=== PATIENT | female | born 1965 | race American Indian/Alaskan Native ===

== ENCOUNTER 2016-08-09 09:59 | Outpatient (CLI) | payer OTHER ==
--- NOTE | 2016-08-09 11:23 | Ultrasound Report ---
Sonogram popliteal fossa: History: Pabon's cyst. Findings: No cystic or solid masses identified. Grossly vascular structures appears unremarkable. Impression: No cystic or solid mass.
== END 2016-08-09 10:00 | disposition home or self-care (01) ==
LOC: SPVWC 09:59
PROVIDERS: ATTEND Hospitalist
DX: M71.21 Synovial cyst of popliteal space [Baker], right knee (principal)

== ENCOUNTER 2018-05-22 08:48 | Day surgery (SDC) | payer OTHER ==
[~2018-05-22 08:48] MED LIST: NACL 0.9% 1000 ML 1,000 ML IV SCH
[2018-05-22] MEDS ORDERED: VERSED ONE (10:38)
[2018-05-22] MEDS ORDERED: DIPRIVAN 10 MG/ML IV ONE (10:38)
--- NOTE | 2018-05-22 10:44 | Anesthesia Day of Surgery ---
Anesthesia Day of Surgery - Day of Surgery Patient Examined: Yes Patient H&P Reviewed: Yes Patient is NPO: Yes Beta Blockers: No
--- NOTE | 2018-05-22 10:44 | Anesthesia Consultation ---
Anesthesia Consult and Med Hx Date of service: 05/22/18 - Airway Anesthetic Teeth Evaluation: Good ROM Head & Neck: Adequate Mental/Hyoid Distance: Adequate Mallampati Class: Class II Intubation Access Assessment: Probably Good - Pulmonary Exam CTA: No - Cardiac Exam Cardiac Exam: RRR - Pre-Operative Health Status ASA Pre-Surgery Classification: ASA3 Proposed Anesthetic Plan: MAC - Cardiovascular System Hx Hypertension: Yes - Endocrine Hx Liver Disease: Yes (CYST ON LIVER)
--- NOTE | 2018-05-22 11:14 | Procedure Note ---
Date of procedure: 05/22/18 Pre-op diagnosis: GERD/ Colon Polyp Screening Post-op diagnosis: other (Mild to Moderate Distal Erosive Esophagitis/ Gastritis/ No Peptic, Ulcer disease noted/ Normal colon Mucosa/ Minor, Internal Hemorrhoid) Procedure: EGD with Biopsy/ colonoscopy Anesthesia: MAC Surgeon: BERTO DIANA Estimated blood loss: minimal Pathology: list Specimen disposition: to lab Condition: stable Disposition: same day (Avoid aspirin and NSAID for 5 days. Treat with PPI and follow up in 1 to 2 weeks ([phone]).)
--- NOTE | 2018-05-22 11:33 | Operative Report ---
PROCEDURE: Esophagogastroduodenoscopy with biopsy INDICATIONS FOR PROCEDURE: This is a 53-year-old -[place] female who has a prior history of Martha fundoplication and gastroesophageal reflux disease symptoms. EGD was done to assess for the severity of the esophagitis. DESCRIPTION OF PROCEDURE: Procedure was done after getting informed consent with MAC anesthesia. Instrument was passed through the pharynx into the esophagus, which showed mild to moderate distal erosive esophagitis. Biopsy was done from the distal esophagus. The Martha fundoplication appears to have loosened a bit. The stomach showed gastritis. Biopsy was done from the gastric antrum, gastric body and angular incisura. There was minimal bleeding from the biopsy sites. Pylorus was patent. Duodenum in the first and second portion appeared normal. ASSESSMENT: Gastroesophageal reflux disease symptoms, history of Martha fundoplication that has become loose and [id number] distal erosive esophagitis, gastritis. No peptic ulcer disease noted. There was minimal bleeding from the biopsy sites. No complications associated with the procedure. PLAN: Plan is to treat the patient with PPI and to do a colonoscopy for further assessment. RNSissy was in the room throughout the entirety of the procedure. The patient will be asked to follow up in the office in 1-2 weeks' time, treated with PPI, and asked to avoid aspirin and aspirin-related products for the next few days. JOB# [id number] SIOMARA/NICHOLE
[2018-05-22 11:51] VITALS: BP 120/81
--- NOTE | 2018-05-22 13:11 | Operative Report ---
PROCEDURE: Colonoscopy. INDICATIONS: This is a 53-year-old -[place] female, who has a family history of cancer. Colonoscopy and possible prior history of colon polyps. Colonoscopy was done to make sure that there was not any colon polyps present as part of colon polyp screening. DESCRIPTION OF PROCEDURE: Procedure was done after getting informed consent with MAC anesthesia. Initial rectal exam was unremarkable. Instrument was passed through the rectum onto the cecum, which was identified by the ileocecal valve and the appendiceal orifice. Visualization was fair to good. Cecum, ascending colon, transverse colon showed normal mucosa as did the descending colon. The sigmoid and the rectum showed some minor internal hemorrhoid on the retroverted view. ASSESSMENT: Normal colon polyp screening. Normal colon mucosa. Minor internal hemorrhoid. There were no biopsies associated with the procedure. No bleeding or complications associated with the procedure. The patient will be treated with PPI because of the upper GI findings of [id number] distal erosive esophagitis, gastritis and follow up in the office in 1-2 weeks' time. RNSissy was in the room throughout the entirety of the procedure. JOB# [id number] [place]/NICHOLE
== END 2018-05-22 08:49 | disposition home or self-care (01) ==
LOC: GIO 08:48
DX: Z12.11 Encounter for screening for malignant neoplasm of colon (principal); K64.8 Other hemorrhoids; K21.0 Gastro-esophageal reflux disease with esophagitis; K29.70 Gastritis, unspecified, without bleeding; I10 Essential (primary) hypertension; Z79.899 Other long term (current) drug therapy; Z80.8 Family history of malignant neoplasm of other organs or systems; Z88.5 Allergy status to narcotic agent; Z90.49 Acquired absence of other specified parts of digestive tract; Z98.890 Other specified postprocedural states
CPT/HCPCS: 43239; 45378; 88305; 88312; 88342; J2250; J2704; J7030